=== PATIENT | female | born 2000 | race Two or more races ===

== ENCOUNTER 2025-01-23 02:17 | Emergency (ER) | payer BC, MEDICAID ==
[~2025-01-23] VITALS: Ht 167.6 cm; Wt 82.0 kg
--- NOTE | 2025-01-23 02:51 | ED.PDOC ---
HPI (NEURO) HPI Comments 24 year old female came to ER via EMS for seizures. Patient has a history of seizures, takes Keppra regularly for seizures, and last seizure episode was 6 months ago. Was at home, when she had a witnessed seizure, tonic-clonic, lasting 1-1/2 minutes, she fell off the bed and hit her head on the shelf. No oral trauma or urinary incontinence noted. Patient is still slightly postictal at this time of care. Blood sugar on scene was 109 Chief Complaint: Seizure Time Seen by MD: 02:50 Reviewed Notes: Executive Chairman Of The Board Notes Information Source: Patient, Emergency Med Personnel Mode of Arrival: EMS Severity: Moderate Dizziness/Weakness Severity: Unable to do activities Headache Severity: Moderate Timing: Minutes Duration: Minutes Seizure Quality: Tonic-clonic Headache Quality: Throbbing, Aching Headache Location: Generalized Weakness Location: Generalized Numbness Location: Generalized Seizure Location: Generalized Onset: With light exertion Circumstances: Spontaneous Symptoms: Weakness Before: Normal During: LOC After: Confusion, Headache History of: Seizure Disorder Associated Signs and Symptoms: Weakness Past Medical History PAST MEDICAL HISTORY: Seizures Surgical History: Denies all surgeries ENVIRONMENTAL SERVICES PROJECT MANAGER History: Denies all ENVIRONMENTAL SERVICES PROJECT MANAGER Hx Family History Family History: Reviewed,noncontributory to illness Social History Smoker: Non-Smoker Alcohol: Denies ETOH Use Drugs: Denies Drug Use Lives In: Home Unable to Obtain due to: Altered Mental Status, Other (Patient postictal) Physical Exam General Appearance: No Apparent Distress, Normal HEENT: Normal ENT Inspection, Pharynx Normal, TMs Normal Neck: Full Range of Motion, Non-Tender, Normal, Normal Inspection Respiratory: Chest Non-Tender, Lungs Clear, No Accessory Muscle Use, No Respiratory Distress, Normal Breath Sounds Cardiovascular: No Edema, No JVD, No Murmur, No Gallop, Normal Peripheral Pulses, Regular Rate/Rhythm Breast Exam: Deferred Gastrointestinal: No Organomegaly, Non Tender, No Pulsatile Mass, Normal Bowel Sounds, Soft Genitalia: Deferred Pelvic: Deferred Rectal: Deferred Extremities: No calf tenderness, Normal capillary refill, Normal inspection, Normal range of motion, Non-tender, No pedal edema Musculoskeletal : Apperance: Normal Neurologic: Alert, airport refueling handler II-XII nml as Tested, No Motor Deficits, Normal Affect, Normal Mood, No Sensory Deficits Cerebellar Function: Normal Reflexes: Normal Skin: Dry, Normal Color, Warm Lymphatic: No Adenopathy Was a procedure done? Was a procedure done?: No Differential Diagnosis (SZ) Seizure: Hypoxemia, Idiopathic, Encephalopathy, Epilepsy-Break Through, Epilepsy-Status Headache: Epidural Hemorrhage, Intracerebral Hemorrhage, Subarachnoid Hemorrhage, Subdural Hemorrhage, Mass Lesion X-Ray, Labs, Meds, VS Vital Signs Date Time Temp Pulse Resp B/P (MAP) Pulse Ox O2 Delivery O2 Flow Rate FiO2 01/23/25 05:59 98.1 62 20 115/79 (91) 97 98.1 01/23/25 03:36 98.1 80 20 113/78 (90) 97 98.1 01/23/25 03:36 80 20 97 Room Air* 0 21 01/23/25 02:17 98.6 123 20 124/91 98 98.6 Lab Test 01/23/25 05:48 01/23/25 02:59 Range/Units Urine Test Negative Negative Urine Opiates Screen Neg NEGATIVE Urine Fentanyl Screen Neg NEGATIVE Urine Barbiturates Screen Neg NEGATIVE Urine Phencyclidine Screen Neg NEGATIVE Urine Amphetamines Screen Neg NEGATIVE Urine Benzodiazepines Screen Neg NEGATIVE Urine Cocaine Screen Neg NEGATIVE Urine Cannabinoids Screen Neg NEGATIVE Sodium Level 141 136-145 mmol/L Potassium Level 4.0 3.5-5.1 mmol/L Chloride Level 105 98-107 mmol/L Carbon Dioxide Level 27 20-31 mmol/L Anion Gap 9 5-15 Blood Urea Nitrogen 11 9-23 mg/dL Creatinine 0.84 0.550-1.02 mg/dL Glomerular Filtration Rate Calc 99 >90 mL/min BUN/Creatinine Ratio 13.1 10.0-20.0 Serum Glucose 95 74-106 mg/dL Calcium Level 9.0 8.7-10.4 mg/dL Current Medications Medications (Trade) Dose Ordered Sig/Sunita Route Start Time Stop Time Status Last Admin Levetiracetam 100 ml @ 400 mls/hr ONCE ONCE IV 01/23/25 03:00 01/23/25 03:14 DC 01/23/25 03:27 PATIENT: CORETTA ANSARI ACCT: [id number] UNIT: [id number] : 2000 LOC: ER ROOM / BED: / AGE / SEX: 24 / F ADM STATUS: REG ER SERVICE 0250 ORDERING PHYSICIAN: DANIELA GARZA MD PROCEDURE(s): HWOCT - HEAD WITHOUT CONTRAST REASON: injury ORDER NUMBER(s): [id number], ACCESSION NUMBER(s): [id number] EXAM: CT HEAD WITHOUT CONTRAST HISTORY: injury COMPARISON: None TECHNIQUE: Noncontrast axial CT images of the head were performed. Sagittal and coronal reformatted images were obtained. This CT exam was performed using 1 or more of the following dose reduction techniques: Automated exposure control, adjustment of the mA and/or kv according to patient size, or the use of iterative reconstruction techniques. Radiation Dose: CTDI volume is 65.81 mGy. Dose-length product is 1163.24 mGy*cm FINDINGS: No intracranial hemorrhage, mass, midline shift, hydrocephalus, or evidence of acute large vessel infarct. There is divergent optic gaze. The partially-vi sualized paranasal sinuses are clear. The bilateral mastoid air cells and middle ear spaces are clear. No cranial fracture. There is right parietal scalp edema. IMPRESSION: 1. No acute intracranial process. 2. Right parietal scalp edema without underlying cranial fracture. ATED BY: MAYTE ALVAREZ MD DICTATED DATE/TIME: 01/23/25639 SIGNED BY: MAYTE ALVAREZ MD SIGNED DATE/TIME: 01/23/25639 CC: I took over patient's care from Dr. Garza at 6:00 a.m.. Patient has a known history of seizures. Pending CT scan of the brain. I have reviewed the CT scan of the brain with demonstrates right parietal scalp edema without underlying fracture. I have re-evaluated the patient, she is awake alert and feeling well. She is requesting a prescription for Keppra 1500 mg b.i.d. which I have sent to pharmacy of your choice. Advised her to follow up with the primary care physician in 2-3 days and return to the ER if symptoms worsen or persist. Labs were reviewed by myself with a normal chemistry panel urine and patient is not . Time of 1ST Reevaluation: 02:48 Reevaluation 1ST: Unchanged Time of 2ND Reevaluation: 05:18 Reevaluation 2ND: Resolved Time of 3RD Reevaluation: 07:57 Reevaluation 3RD: Improved Patient Education/Counseling: Diagnosis, Treatment, Prognosis, Need For Follow Up Family Education/Counseling: No Family Present Comments Patient has been seizure-free since he has been here. She has been alert oriented without any complaints. However she does have a hematoma on the occipital scalp and she did fall and hit her head when she had a seizure. Therefore she is pending her CAT scan of the head. I will sinus patient's care out to Dr. Laguerre at change of shift. Departure 1 Departure Time of Disposition: 07:57 Impression: Primary Impression: Seizure disorder Additional Impression: Scalp hematoma Qualified Codes: S00.03XA - Contusion of scalp, initial encounter Disposition: HOME / SELF CARE / HOMELESS Condition: Stable Additional Instructions: Follow up with the primary care physician in 2-3 days. Return to the ER if symptoms worsen or persist. e-Prescriptions Levetiracetam (KEPPRA TABLET) 500 Mg Tb 1500 MG PO BID for 14 Days, #84 TAB Prov: IMELDA LAGUERRE MD 01/23/25 Discharged With: Self Critical Care Note Critical Care Time?: Yes (55 min-critical care time only) Critical care comment: Due to concerns for patients condition deteriorating, the care required my highest level of attention and readiness to intervene. I assessed the patient, reviewed the medical records, ordered the appropriate tests and treatments, then reassessed for results and responsiveness. I communicated with medical personnel and consultants and formulated a plan of care. Total critical care time excludes any procedures Stability Stability form required: No Heart Score Heart Score: Heart Score Response (Comments) Value History N/A 0 EKG N/A 0 Age N/A 0 Risk Factors N/A 0 Troponin N/A 0 Total 0 I personally scribed for DANIELA GARZA MD ([email or web address]) on 01/23/25 at 02:51. Electronically submitted by Suhail Jacques ([email or web address]). DANIELA GARZA MD Jan 23, 2025 02:51 IMELDA LAGUERRE MD Jan 23, 2025 08:00
[2025-01-23 03:27] LABS: Chloride 105 mmol/L (98-107); Potassium 4.0 mmol/L (3.5-5.1); Sodium 141 mmol/L (136-145)
[2025-01-23] MEDS: levETIRAcetam 1000 mg/100ml 100 ML IV ONE (03:27)
[2025-01-23 03:28] LABS: Anion Gap 9 (5-15); Calcium 9.0 mg/dL (8.7-10.4); Carbon Dioxide 27 mmol/L (20-31)
[2025-01-23 03:33] LABS: BUN/Creatinine Ratio 13.1 (10.0-20.0); Blood Urea Nitrogen 11 mg/dL (9-23); Glucose 95 mg/dL (74-106)
[2025-01-23 03:36] VITALS: PULSE 80; RESP 20; O2SAT 97
[2025-01-23 06:14] LABS: Amphetamine Screen, Urine Neg (NEGATIVE); Barbiturate Scree,Urine Neg (NEGATIVE); Benzodiazephine Screen, Urine Neg (NEGATIVE); Cannabinoid Screen, Urine Neg (NEGATIVE); Cocaine Screen, Urine Neg (NEGATIVE); Opiate Scree,Urine Neg (NEGATIVE); Phencyclidine Screen, Urine Neg (NEGATIVE)
--- NOTE | 2025-01-23 06:42 | DVH ---
EXAM: CT HEAD WITHOUT CONTRAST HISTORY: injury COMPARISON: None TECHNIQUE: Noncontrast axial CT images of the head were performed. Sagittal and coronal reformatted i mages were obtained. This CT exam was performed using 1 or more of the following dose reduction techn iques: Automated exposure control, adjustment of the mA and/or kv according to patient size, or the u se of iterative reconstruction techniques. Radiation Dose: CTDI volume is 65.81 mGy. Dose-length product is 1163.24 mGy*cm FINDINGS: No intracranial hemorrhage, mass, midline shift, hydrocephalus, or evidence of acute large vessel inf arct. There is divergent optic gaze. The partially-visualized paranasal sinuses are clear. The bilate ral mastoid air cells and middle ear spaces are clear. No cranial fracture. There is right parietal scalp edema. IMPRESSION: 1. No acute intracranial process. 2. Right parietal scalp edema without underlying cranial fracture.
[2025-01-23] MEDS ORDERED: KEP500T PO (07:56)
[2025-01-23 08:00] VITALS: BP 106/72; PULSE 58; RESP 20; TEMP 98.4; O2SAT 97
== END 2025-01-23 08:28 | disposition home or self-care (01) ==
LOC: ER 02:22
DX: G40.909 Epilepsy, unspecified, not intractable, without status epilepticus (principal); S00.03XA Contusion of scalp, initial encounter; W06.XXXA Fall from bed, initial encounter; Y93.89 Activity, other specified; Y92.89 Other specified places as the place of occurrence of the external cause; Y99.8 Other external cause status
CPT/HCPCS: 36415; 70450; 80048; 80307; 81025; 96374; 99291; J1953